=== PATIENT | male | born 1945 | race Caucasian/White ===

== ENCOUNTER 2016-06-27 11:47 | Day surgery (SDC) | payer MEDICARE, BC ==
[~2016-06-27] VITALS: Ht 182.9 cm; Wt 84.2 kg
[2016-06-27] MEDS ORDERED: LEVO150T7 PO (12:47)
[2016-06-27] MEDS ORDERED: SIMV20TA PO (12:47)
[2016-06-27] MEDS ORDERED: LISI-519 PO (12:47)
[2016-06-27 12:56] LABS: AUTOMATED NEUTROPHIL # 5.1 TH/MM3 (1.8-7.7); BASOPHIL % 0.5 % (0.0-2.0); EOSINOPHIL # 0.2 TH/MM3 (0-0.4); HEMATOCRIT 49.4 % (39.0-51.0); HEMO FLAGS DIFF FINAL; LYMPH % 27.8 % (9.0-44.0); LYMPHOCYTE # 2.3 TH/MM3 (1.0-4.8); MEAN CELL VOLUME 93.8 FL (80.0-100.0); MEAN CORPUSCULAR HEMOGLOBIN 31.2 PG (27.0-34.0); MEAN CORPUSCULAR HGB CONC 33.3 % (32.0-36.0); MONO % 9.3 % (0.0-8.0); NEUT % 60.4 % (16.0-70.0); PLATELET COUNT 144 TH/MM3 (150-450); RED BLOOD COUNT 5.26 MIL/MM3 (4.50-5.90); RED CELL DISTRIBUTION WIDTH 13.7 % (11.6-17.2); WHITE BLOOD COUNT 8.4 TH/MM3 (4.0-11.0)
[2016-06-27 13:06] LABS: APTT (PATIENT) 30.6 SEC (24.3-30.1); PROTHROMBIN TIME - PATIENT 11.4 SEC (9.8-11.6)
[2016-06-27 13:08] LABS: BICARBONATE 25.9 MEQ/L (21.0-32.0); POTASSIUM 4.1 MEQ/L (3.5-5.1)
[2016-06-27] MEDS ORDERED: NS 1000P @30 MLS/HR (KVO) IV SCH (13:30)
[2016-06-27] MEDS ORDERED: IOHEXOL 350 MG/ML 100 ML BTL (for Cath Lab) OTHER ONE (14:35)
[2016-06-27] MEDS: MIDAZOLAM HCL 5 MG/5 ML VIAL ONE (14:54)
[2016-06-27] MEDS: HEPARIN SODIUM - IV 10,000 UNITS/10 ML VIAL ONE (15:01)
--- NOTE | 2016-06-27 16:16 | CATHPROC ---
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 Com. (L4) Illiac Art. Angiogram LV Abd Aorta (A3) Aorta Angiogram LV AO Arch (A1) Aorta Angiogram LV LV Ventricle Coronary Angiograms LCA Left Coronary Coronary Angiograms RCA Right Coronary Wire insertion Fem Art (right) Femoral Art Wire insertion Fem Vein (right) Femoral Vein Equipment Time Inspector Bullet Slugs Description Size Mfg Part Number Used/Scraped [id number] 14:46 BEAN HURT SWAN LIEN CATHETER FR 7 Used *[id number] TRANSDUCER, TRUWAVE 14:46 BEAN HURT * [id number] Used W/STOCKCOCK TRANSDUCER, TRUWAVE 14:46 BEAN HURT * [id number] Used W/STOCKCOCK [id number] *[id number] 534-560T *[id number] 534-520T *[id number] 534-517T *[id number] [id number] *[id number] WIRE, HYDROSTEER 260CM 15:45 DAIG/[employer] 260CM [id number] Used ANGLED GLIDE [id number] 14:46 Reamaze IND[employer]RIES PACK, CCL CUSTOM * Used *[id number] 14:46 Reamaze PACER PEN, SKIN DUAL W/ RULER * [id number] Used 14:46 Satmetrix WIRE, 3MMJ .035 180CM 180CM [id number] Used [id number] 15:42 M [employer]ared Films MEDICAL WIRE, EXCHANGE 260CM 3MMJ 260CM Used *[id number] PROBE COVER, STERILE 14:46 Maimaibao * [id number] Used ULTRASOUND W/ GEL [id number] 14:46 NAMIC MANIFOLD, 2 PORT * Used *[id number] 14:46 NAMIC MANIFOLD, 4 PORT * Used *[id number] 14:46 NAMIC TUBING, HIGH PRESSURE 48" 48" Used *[id number] 14:46 NYCOMED OMNIPAQUE, 350 MG, 100ML 100ML [id number] Used [id number] 14:46 HOGUE MEDICAL BLANKET,WARM AIR CCL * Used *[id number] 14:56 TERUMO MEDICAL SHEATH, FR5 TERUMO (10CM) FR 5 [id number] Used 14:46 TERUMO MEDICAL SHEATH, FR5 TERUMO (10CM) FR 5 [id number] Used 14:46 TERUMO MEDICAL SHEATH, FR7 TERUMO (10CM) FR 7 [id number] Used 14:46 TERUMO MEDICAL SHEATH, FR7 TERUMO (10CM) FR 7 [id number] Used 15:45 TERUMO MEDICAL/KE CATHETER, FR5 ANGLED 100CM FR 5 [id number] *[id number] Used History: Current Medications Medication Dosage/Unit Route Frequency Last Date/Time Taken Statins (any) History: Allergies Allergy Reaction No Known Allergies History: Risk Factors Family History of Hypertension Dyslipidemia Previous MD Previous Heart Failure Premature CAD Yes Yes No No No Prior Valve Prior PCI Prior CABG Surgery No No No Cerebrovascular Peripheral Artery Chronic Lung On Dialysis Diabetes Disease Disease Disease No No Yes Yes No History: Risk Factors Selection Items Current Smoker History: Stress Tests Stress or Imaging Studies Performed No History: Other Disease Selection Items HTN History: Other Current Smoker Method Packs a Day Years Used Pack Years Yes Cigarettes 1 63 63 Labs Hgb (g/dl) Hct (%) WBC (l/cumm) Platelets (thousands) 12.00-18.00 37.00-55.00 4.80-10.80 140.00-450.00 16.4 49.4 8.4 144 Glucose (mg/dl) BUN (mg/dl) Creatinine (mg/dl) BUN:Creatinine (1:x) 60.00-110.00 8.00-20.00 0.10-9.00 10.00-20.00 105 23 1.3 17.7 Na (meq/l) K (meq/l) 138.00-146.00 3.80-5.10 140 4.1 INR (PTT:PT) 0.50-2.00 1 CPK-MB (ng/ML) 0.00-7.00 Not Drawn Medication Medication Total Dose (Bolus/Oral) Medication Total Dosage/Unit 1% XYLOCAINE 20 mL FENTANYL 175 mcg HEPARIN 3000 units VERSED 5 mg Medications (Bolus/Oral) Medication Time Given Dosage/Unit Administered By Reason VERSED 06/27/2016 2:54:17 PM 2 mg Ugo Cruz RN 2 mg VERSED given in lab by Ugo Cruz RN in Left Antecubital via Peripheral IV. FENTANYL 06/27/2016 2:55:33 PM 50 mcg Ugo Cruz RN 50 mcg FENTANYL given in lab by Ugo Cruz RN in Left Antecubital via Peripheral IV. 1% XYLOCAINE 06/27/2016 2:57:39 PM 20 mL Alex Hou 20 mL 1% XYLOCAINE given in lab by Alex Hou in Right Groin via Subcutaneous. HEPARIN 06/27/2016 3:01:53 PM 3000 units Ugo Cruz RN 3000 units HEPARIN given in lab by Ugo Cruz RN via Peripheral IV. VERSED 06/27/2016 3:01:54 PM 1 mg Ugo Cruz RN 1 mg VERSED given in lab by Ugo Cruz RN via Peripheral IV. FENTANYL 06/27/2016 3:02:00 PM 25 mcg Ugo Cruz RN 25 mcg FENTANYL given in lab by Ugo Cruz RN via Peripheral IV. VERSED 06/27/2016 3:24:53 PM 2 mg Ugo Cruz RN 2 mg VERSED given in lab by Ugo Cruz RN via Peripheral IV. FENTANYL 06/27/2016 3:25:02 PM 25 mcg Ugo Cruz RN 25 mcg FENTANYL given in lab by Ugo Cruz RN via Peripheral IV. FENTANYL 06/27/2016 3:35:40 PM 25 mcg Ugo Cruz RN 25 mcg FENTANYL given in lab by Ugo Cruz RN in Left Antecubital via Peripheral IV. FENTANYL 06/27/2016 3:47:40 PM 50 mcg Ugo Cruz RN 50 mcg FENTANYL given in lab by Ugo Cruz RN via Peripheral IV. Medication (Drip) Medication Time Given Dosage/Unit Concentration/Unit Diluent (ml) Solution IV Solutions 06/27/2016 2:46:45 PM 0 mL (IV) 500 NaCl .9 Patient arrived on IV Solutions in Left Antecubital via Peripheral IV. Pump/Drip Flow = 20 ml/hr usin g NaCl .9. Initial Case Assessment Cardiovascular HR Rhythm NIBP Chest Pain 51 REG-ZORAIDA 136/65 0 Edema Present Skin color Skin None Normal Warm Circulatory - Right Pulses Dorsalis Pedis Femoral 2 2 Scale (0,1,2,3,4,d) Circulatory - Left Pulses Dorsalis Pedis Femoral d 2 Scale (0,1,2,3,4,d) Circulatory - Lower Extremities Color Lower Right Color Lower Left Normal Normal Neurological State Oriented to time-place- Alert Moves all extremities person Respiration - General Respiration Rate SpO2 (%) (B/min) 15 97 Chronological Log Time Study Chronological Log 14:35:50 Patient arrived via Bed. 14:35:51 Patient Name, D.O.B, / Armband Verified By R.N. 14:36:23 Consent signed by the physician and the patient and verified by the [facility] staff. 14:37:31 Pre-op and post- op instructions given; patient acknowledges understanding of instructions. 14:38:35 Verbal Stimulation=2 Physical Stimulation=2 Airway=2 Respiration=2 TOTAL=8. (0=absent, 1=li mited, 2=present) 14:39:41 Patient has been NPO for More than 6Hrs. Vitals capture started with the following parameters, Patient=Adult, Interval=5 min, Initial Pr wbljge=720 mmHg, 14:44:43 Deflation Rate=5 mmHg 14:45:20 HR=46 bpm, EMHX=315/65 mmhg, SpO2=98.0 %, Resp=14 B/min, Pain=0, Leyda=10, Wilsno=2 14:45:22 Reference ECG taken 14:46:26 Skin Breakdown-NONE 14:46:33 Patient Warmer Placed on the Table. 14:46:36 A # 20 IV was noted in the Antecubital (left). Grade = 0 14:46:45 Patient arrived on IV Solutions in Left Antecubital via Peripheral IV. Pump/Drip Flow = 20 ml/hr using NaCl .9. 14:47:11 History and physical on the chart or being dictated. Assessment: Initial Case, HR=51 BPM, Rhythm=REG-ZORAIDA, KHFR=416/65 mmhg, Chest Pain=0, Edema=No ne, Color=Normal, Skin = Warm Right Pulses: Eladio Ped=2, Femoral=2 Left Pulses: Eladio Ped=d, Post Tib=1, Femoral=2 14:47:14 Lower Right Extremities: Color=Normal Lower Left Extremities: Color=Normal Neurological: State=Alert, Ox3, [place] Respiration: Resp=15 B/min, SpO2=97 % 14:48:05 Bilateral groins prepped with 2% chlorhexidine, and with a 3 min. waiting time. 14:50:23 HR=48 bpm, ECVE=697/61 mmhg, SpO2=99.0 %, Resp=16 B/min, Pain=0, Leyda=10, Wilson=2 14:52:54 Pressure channel 1 zeroed. 14:53:21 MD arrived. 14:54:17 2 mg VERSED given in lab by Ugo Cruz RN in Left Antecubital via Peripheral IV. 14:55:22 HR=48 bpm, TYOU=040/64 mmhg, SpO2=98.0 %, Resp=13 B/min 14:55:33 50 mcg FENTANYL given in lab by Ugo Cruz RN in Left Antecubital via Peripheral IV. Time Out. Correct patient, correct procedure,correct physician, ,power injector loaded with con trast with surgical team 14:56:00 present. Time Out Concurred by MD, individual staff and TREATMENT MANAGER in procedure 14:56:57 Case Start 14:57:33 Verbal Stimulation=2 Physical Stimulation=2 Airway=2 Respiration=2 TOTAL=8. (0=absent, 1=li mited, 2=present) 14:57:39 20 mL 1% XYLOCAINE given in lab by Alex Hou in Right Groin via Subcutaneous. 14:58:32 Access site was Right Femoral Vein. WITH ULTRASOUND DEVICE 14:58:52 A wire was inserted via Fem Vein (right). 14:59:06 A SHEATH, FR7 TERUMO (10CM) FR 7 was advanced into the Fem Vein (right) using the Percutane ous technique. 14:59:43 Access site was Right Femoral Artery. 14:59:47 A wire was inserted via Fem Art (right). 14:59:49 A SHEATH, FR5 TERUMO (10CM) FR 5 was advanced into the Fem Art (right) using the Percutaneo us technique. 15:00:23 HR=48 bpm, XGVI=082/56 mmhg, SpO2=91.0 %, Resp=12 B/min, Pain=0, Leyda=10, Wilson=2 15:00:37 A SWAN LIEN CATHETER FR 7 was inserted via Fem Vein (right) 15:01:53 3000 units HEPARIN given in lab by Ugo Cruz RN via Peripheral IV. 15:01:54 1 mg VERSED given in lab by Ugo Cruz RN via Peripheral IV. 15:02:00 25 mcg FENTANYL given in lab by Ugo Cruz RN via Peripheral IV. 15:05:12 HR=48 bpm, XAOC=307/62 mmhg, SpO2=91.0 %, Resp=16 B/min, Pain=0, Leyda=10, Wilson=2 15:05:31 Pressure channel 1 zeroed. 15:05:35 Pressure channel 2 zeroed. Recorded Pressure: MPA, HR=55, Condition=Condition 1 15:05:58 (Main Pulmonary Artery) MPA 41/12/24 A PIGTAIL ANG. INFINITI CATHETER FR 5 was advanced over a wire. OMNIPAQUE, 350 MG, 100ML 100ML was used 15:06:10 for injections. 15:08:15 Saturation: Site=Ao (Aorta) , O2=95.3 %, Hgb=16.4 gm/dl, Condition=Condition 1. Used in silvano culation. 15:08:34 Saturation: Site=PA (Pulmonary Artery) , O2=75.3 %, Hgb=16.4 gm/dl, Condition=Condition 1. Used in calculation. Recorded Pressure: LV, MPA, HR=51, Condition=Condition 1 15:09:36 (Left Ventricle) LV 157/3/14, (Main Pulmonary Artery) MPA 39/10/22 Thermo CO: CO=4.1 l/m, HR=49 bpm, Condition=Condition 1. Used in calculation. 15:10:11 Equipment: Description and Size=SWAN LIEN CATHETER FR 7, Type=Bath Probe, CC=0.579 Injectant: Temp=19.0 - 22.0 Celsius, Volume=10.0 ml 15:10:13 HR=61 bpm, WGHP=405/71 mmhg, SpO2=94.0 %, Resp=18 B/min, Pain=0, Leyda=10, Wilson=2 Thermo CO: CO=5.0 l/m, HR=61 bpm, Condition=Condition 1. Used in calculation. 15:10:56 Equipment: Description and Size=SWAN LIEN CATHETER FR 7, Type=Bath Probe, CC=0.579 Injectant: Temp=19.0 - 22.0 Celsius, Volume=10.0 ml Thermo CO: CO=5.2 l/m, HR=51 bpm, Condition=Condition 1. Used in calculation. 15:11:24 Equipment: Description and Size=SWAN LIEN CATHETER FR 7, Type=Bath Probe, CC=0.579 Injectant: Temp=19.0 - 22.0 Celsius, Volume=10.0 ml Thermo CO: CO=4.1 l/m, HR=52 bpm, Condition=Condition 1. Used in calculation. 15:11:57 Equipment: Description and Size=SWAN LIEN CATHETER FR 7, Type=Bath Probe, CC=0.579 Injectant: Temp=19.0 - 22.0 Celsius, Volume=10.0 ml Recorded Pressure: LV, PCW, HR=55, Condition=Condition 1 15:13:17 (Left Ventricle) LV 162/-1/13, (Pulmonary Capillary Wedge) PCW 14/11/8 Recorded Pressure: LV, MPA, HR=49, Condition=Condition 1 15:13:41 (Left Ventricle) LV 149/-3/11, (Main Pulmonary Artery) MPA 33/9/19 Recorded Pressure: LV, RV, HR=49, Condition=Condition 1 15:14:14 (Left Ventricle) LV 154/2/13, (Right Ventricle) RV 34/1/7 Recorded Pressure: LV, MPA, HR=47, Condition=Condition 1 15:14:28 (Left Ventricle) LV 148/-1/13, (Main Pulmonary Artery) MPA 9/1/4 15:15:16 HR=51 bpm, ORVO=259/60 mmhg, SpO2=93.0 %, Resp=17 B/min, Pain=0, Leyda=10, Wilson=2 15:16:24 The LV was injected at 10 cc/sec for a total of 32. OMNIPAQUE, 350 MG, 100ML 100ML used. Recorded Pressure: LV, HR=54, Condition=Condition 1 15:17:14 (Left Ventricle) LV 156/-2/13 Recorded Pressure: LV, Ao, HR=47, Condition=Condition 1 15:17:37 (Left Ventricle) LV 168/-8/12, (Aorta) Ao 119/39/68 15:18:50 The AO Arch (A1) was injected at 20 cc/sec for a total of 40. OMNIPAQUE, 350 MG, 100ML 100M L used. 15:19:25 Catheter was removed 15:20:21 HR=57 bpm, OAPJ=830/58 mmhg, SpO2=92.0 %, Resp=19 B/min, Pain=0, Leyda=10, Wilson=2 15:21:13 The Abd Aorta (A3) was injected at 20 cc/sec for a total of 40. OMNIPAQUE, 350 MG, 100ML 10 0ML used. 15:24:33 Through a PIGTAIL ANG. INFINITI CATHETER FR 5, The Iliac L. Com. (L4) was injected with 40 cc's of contrast. 15:24:53 2 mg VERSED given in lab by Ugo Cruz RN via Peripheral IV. 15:25:02 25 mcg FENTANYL given in lab by Ugo Cruz RN via Peripheral IV. 15:25:20 HR=49 bpm, DZSZ=213/58 mmhg, SpO2=96.0 %, Resp=22 B/min, Pain=0, Leyda=10, Wilson=2 15:28:01 Catheter was removed A JL 4.0 INFINITI CATHETER FR 5 was advanced over a wire. OMNIPAQUE, 350 MG, 100ML 100ML was us ed for 15:28:03 injections. 15:28:54 The LCA was injected and visualized at various angles. OMNIPAQUE, 350 MG, 100ML 100ML used . 15:30:21 HR=60 bpm, KMNP=799/50 mmhg, SpO2=95.0 %, Resp=20 B/min, Pain=0, Leyda=10, Wilson=2 15:31:31 Catheter was removed A AR MOD INFINITI CATHETER FR 5 was advanced over a wire. OMNIPAQUE, 350 MG, 100ML 100ML was us ed for 15:31:38 injections. 15:34:44 The RCA was injected and visualized at various angles. OMNIPAQUE, 350 MG, 100ML 100ML used . 15:35:18 HR=62 bpm, MKSE=469/67 mmhg, SpO2=94.0 %, Resp=16 B/min, Pain=0, Leyda=10, Wilson=2 15:35:40 25 mcg FENTANYL given in lab by Ugo Cruz RN in Left Antecubital via Peripheral IV. After removing the current catheter a [place] INFINITI CATHETER FR 5 was advanced over a WIRE, 3MMJ .035 180CM 15:37:59 180CM. 15:39:53 Iliac L. Com. (L4) angiogram, manually injected. 15:40:28 HR=61 bpm, RETD=966/60 mmhg, SpO2=89.0 %, Resp=16 B/min, Pain=0, Leyda=10, Wilson=2 15:42:14 A WIRE, EXCHANGE 260CM 3MMJ 260CM was inserted via Fem Art (right). After removing the current catheter a CATHETER, FR5 ANGLED 100CM FR 5 was advanced over a WIRE , HYDROSTEER 15:45:07 260CM ANGLED GLIDE 260CM. 15:45:19 HR=58 bpm, GVEN=323/61 mmhg, SpO2=94.0 %, Resp=13 B/min, Pain=0, Leyda=10, Wilson=2 15:47:33 INJECTION LEFT ILIAC AND LEFT ILIAC RUNOFF 15:47:40 50 mcg FENTANYL given in lab by Ugo Cruz RN via Peripheral IV. 15:48:22 An injection in the Fem Art (right) was made through the SHEATH, FR5 TERUMO (10CM) FR 5. 15:48:55 INJECTION RIGHT ILIAC AND RIGHT FEMORAL RUNOFF 15:50:22 HR=53 bpm, NEYE=758/60 mmhg, SpO2=97.0 %, Resp=18 B/min, Pain=0, Leyda=10, Wilson=2 15:55:37 Case End 15:55:56 HR=62 bpm, DXJJ=490/64 mmhg, SpO2=97.0 %, Resp=17 B/min, Pain=0, Leyda=10, Wilson=2 16:00:59 HR=55 bpm, MKLO=466/54 mmhg, SpO2=98.0 %, Resp=11 B/min, Leyda=10 End Study - Contrast Media Used In Study Contrast Total Opened (mL) Total Used (mL) Total Wasted (mL) Omnipaque 280 280 0 End Study - Maximum Contrast Load Max Contrast Load (mL) 323.8 End Study - Radiation Exposure Fluoro Time (minutes) 8.0 End Study - Patient Disposition Complications Transferred To No Outpatient Bed
[2016-06-27] MEDS ORDERED: METO25TA3 PO (19:46)
[2016-06-27] MEDS ORDERED: CLOP75TA PO (19:46)
[2016-06-27] MEDS ORDERED: ASPI-147 PO (19:46)
[2016-06-27] MEDS ORDERED: ATOR1TAB18 PO (19:46)
--- NOTE | 2016-06-28 13:33 | EKG ---
Date Performed: 06/27/2016 Time Performed: 12:55:38 PTAGE: 71 years EKG: Sinus bradycardia Left axis deviation Inferior T wave changes are nonspecific Compared to p revious tracing, the sinus bradycardis is resolved. Borderline ECG PREVIOUS TRACING : 11/13/1997 12.43 DOCTOR: Yaneth Saenz Interpretating Date/Time 06/28/2016 13:30:43
--- NOTE | 2016-06-29 06:43 | MA ---
cc: SAMUEL LEACH MD DATE: 06/27/2016 INDICATIONS Aortic stenosis, peripheral vascular disease, left lower extremity claudication, stable angina, class 2. PROCEDURE PERFORMED 1. Retrograde left and right heart catheterization with left ventriculography, selective coronary angiography, thermodilution cardiac output determination. 2. Thoracic aortography. 3. Abdominal aortography with distal runoff. 4. Selective left common iliac artery angiography. 5. Selective right common iliac artery angiography. ACCESS SITE Right femoral artery, right femoral vein. EQUIPMENT USED 5 Azerbaijani pigtail catheter, 5 Azerbaijani JL4 and AR modified coronary catheters, [place] catheter for the left common iliac artery angiography. MEDICATIONS Versed IV, Fentanyl IV, heparin IV IV CONTRAST Omnipaque 200 cc BLOOD LOSS: Less than 10 cc COMPLICATIONS None METHOD OF HEMOSTASIS Manual compression. RESULTS HEMODYNAMICS Heart rate 55 beats per minute Mean pulmonary capillary wedge pressure 8 mmHg. Right ventricle, 34/7. Pulmonary artery 34/9/19 Mean right atrial pressure 4 mmHg. Left ventricular end-diastolic pressure 13 mmHg Left ventricle 164/13 Aorta 128/39/68 Mean aortic gradient 36 mmHg Calculated aortic area 1.1 cm square by thermodilution and 1.3 cm square by ZAHRA. LEFT VENTRICULOGRAPHY Ejection fraction 45%. Inferobasilar hypokinesis, no mitral regurgitation. THORACIC AORTOGRAPHY No evidence of aortic insufficiency. ABDOMINAL AORTOGRAPHY Mild disease in the distal abdominal aorta. CORONARY ANGIOGRAPHY Left main coronary artery, patent. Left anterior descending artery has 40% stenosis in the proximal portion, 30% in the mid portion. First diagonal artery has 40% stenosis. Left circumflex artery is patent. OM1 has 80% stenosis in the proximal portion. The right coronary artery is totally occluded in the mid portion. Distal vessel fills by [id number] and [id number] collaterals. SELECTIVE COMMON ILIAC ANGIOGRAPHY Right external iliac artery, 30% stenosis. Left common iliac artery, 70% stenosis in its proximal portion. Left external iliac artery, 60% stenosis in the proximal portion distally to the stent. Left internal iliac artery, 80% stenosis at its ostium. DIAGNOSIS 1. Multivessel coronary artery disease with total occlusion of the right coronary and 80% stenosis of the first obtuse marginal artery. 2. Mild LV systolic dysfunction. 3. Ischemic cardiomyopathy. 4. Moderate aortic stenosis. 5. Moderate to severe peripheral vascular disease with the stenosis of the left common iliac and left external iliac artery. DISPOSITION Mr. Eller was found to have evidence of moderate aortic stenosis. His left ventricular function is mildly decreased. His coronary angiography showed total occlusion of the right coronary artery with distal vessel filling by collaterals and also 80% stenosis of the first obtuse marginal artery. His peripheral angiography showed significant stenosis of the left iliac system. The patient will be referred to Dr. Rivera for consideration of peripheral intervention. I will see him back for followup in our office. If he has symptoms of angina, we may consider coronary intervention and stenting of the first obtuse marginal artery. He will be started on platelet inhibitor and aspirin. We will also continue aggressive management of his cardiac risk factors. MD JOSÉ Ruiz/AVELINO /4:14 PM /5:54 AM ANN
== END 2016-06-27 19:50 | disposition home or self-care (01) ==
LOC: HDOC 11:47 → HDIC 11:48 → HDOC 19:50
PROVIDERS: ATTEND Internal Medicine Interventional Cardiology
DX: I35.0 Nonrheumatic aortic (valve) stenosis (principal); I73.9 Peripheral vascular disease, unspecified; R06.02 Shortness of breath; E78.5 Hyperlipidemia, unspecified; I10 Essential (primary) hypertension; J44.9 Chronic obstructive pulmonary disease, unspecified; F17.210 Nicotine dependence, cigarettes, uncomplicated; I25.5 Ischemic cardiomyopathy; I25.10 Atherosclerotic heart disease of native coronary artery without angina pectoris
CPT/HCPCS: 36247; 75716; 80048; 85002; 85025; 85610; 85730; 93005; 93460; C1769; C1887; C1893; J1644; J2250; J3010; Q9967